=== PATIENT | female | born 1955 | race Caucasian/White ===

== ENCOUNTER 2016-08-15 17:01 | Emergency (ER) | payer BC, OTHER, SELFPAY ==
[2016-08-15] MEDS ORDERED: Sodium Chloride 0.9% 10 ML Syringe FLUSH PRN (17:11)
[2016-08-15 17:25] VITALS: BP 139/84
[2016-08-15 17:59] LABS: CHLORIDE,CL 101 mmol/L (98-107); SODIUM,NA 142 mmol/L (136-145)
--- NOTE | 2016-08-16 11:25 | ER ---
Date of Service: 08/15/2016 SUBJECTIVE: Ms. Preston presents to the emergency room with complaints of upper abdominal pain and back pain. She states that the discomfort started approximately 3 o'clock this afternoon. She states the discomfort was a sharp, shooting type of pain. She denies any changes to her bowel or bladder function and no nausea. No vomiting. No melena, hematochezia, or hematemesis. She states that the pain radiates into her lower back. She states that she was making cupcakes at the onset of the symptoms. She does have a history of a ruptured duodenal ulcer in the past, but states that the pain is dissimilar to that. She states that the discomfort is worse with movement and she thinks that possibly the discomfort actually is originating from her mid back region. She states she has not been experiencing any fever or chills. No nausea, vomiting, or diarrhea. PAST MEDICAL HISTORY: 1. Ruptured duodenal ulcer. 2. Vitamin D deficiency. 3. Dyslipidemia. MEDICATIONS: 1. Zocor 20 mg at bedtime. 2. Multivitamin once daily. 3. Vitamin D3 1000 units p.o. daily. 4. Calcium plus D 1 tablet p.o. b.i.d. 5. Aspirin 81 mg daily. ALLERGIES: Codeine and iodine. REVIEW OF SYSTEMS: General: No fever or chills. HEENT: No sore throat, rhinorrhea, or congestion. Respiratory: No shortness of breath. Cardiac: Denies any substernal chest pain. No jaw, arm, neck, or back pain. GASTROINTESTINAL: Complains again of upper abdominal and back pain. She states that the discomfort was fairly rapid in onset. She is not sure specifically which discomfort started first. NEUROLOGIC: No fainting, blackouts, or lightheadedness. PHYSICAL EXAMINATION: General: This is a 60-year-old female patient, in no acute distress. Vital Signs: Blood pressure is 139/84, pulse rate 64, temperature is 36.9, respiratory rate is 20, O2 saturations 96%. SKIN: Warm, pink, and dry. HEENT: Mouth, oral mucosa is moist. No erythema or exudate noted in the hypopharynx. Neck: Supple without masses. There is no lymphadenopathy. Lungs: Clear to auscultation. Heart: Regular rate and rhythm. Abdomen: Soft and nontender. There is no hepatosplenomegaly or masses noted. Unable to reproduce the discomfort on palpation of her upper abdomen. Back: She does have increased discomfort with flexion and extension of her mid back region. Extremities: Without edema. Neurologic: She is alert and oriented, answers all questions appropriately. Her speech is fluent. Her gait is within normal limits. LABORATORY DATA: WBCs 6.7, hemoglobin is 14.2, platelets are 228. Chemistry; sodium is 142, potassium is 3.6, chloride is 101, bicarb is 36, BUN is 16, creatinine is 1.0, creatinine clearance is 58, GFR is 57, glucose is 113, calcium is 9.3, corrected calcium is 9.14. Total bilirubin is 0.6, AST is 20, ALT is 22, alkaline phosphatase is 77. C-reactive protein is less than 0.2. Total protein is 7.7. Urinalysis; pH is 7.5, specific gravity is 1.020. Negative for glucose, ketones, occult blood, nitrites, bilirubin, leukocyte esterase. The patient's blood alcohol was negative. EMERGENCY ROOM COURSE: The patient's mid discomfort was resolving on arrival to the emergency room. As the patient set in the emergency room, the discomfort continued to improve and by the time she was discharged, the pain had almost completely resolved. She remained stable in my care in the emergency room. ASSESSMENT: Upper abdominal and mid back pain. PLAN: Discussed the findings with the patient. At this point, since this has been approximately 2 hours since the onset of the symptoms and her vital signs and then laboratory findings were all within normal limits, we could probably delay CT scan at this point. She does not have an elevated CRP and her white count is within normal limits. I did schedule her for a gallbladder ultrasound. She does live in [place] and will return if the discomfort redevelops. She will also return if she develops any fever, chills, sweats or other worrisome signs or symptoms. All questions were answered. MWK: 08/15/2016 19:38:28 MODL: 08/15/2016 20:06:06 /[id number]
== END 2016-08-15 18:48 | disposition home or self-care (01) ==
LOC: VM.ED 17:01
DX: R10.10 Upper abdominal pain, unspecified (principal); M54.9 Dorsalgia, unspecified; E78.5 Hyperlipidemia, unspecified; Z79.82 Long term (current) use of aspirin; Z88.5 Allergy status to narcotic agent; Z88.8 Allergy status to other drugs, medicaments and biological substances
CPT/HCPCS: 36415; 74022; 80053; 81001; 85025; 86140; 99284; G0480

== ENCOUNTER 2016-09-13 11:48 | Emergency (ER) | payer BC, SELFPAY ==
[2016-09-13] MEDS ORDERED: Sodium Chloride 0.9% 10 ML Syringe FLUSH PRN (11:56)
[2016-09-13] MEDS ORDERED: HYDROmorphone 1 MG/ML Syringe IVPUSH ONE ×2 (11:58→12:53)
[2016-09-13] MEDS ORDERED: Sodium Chloride 0.9% 1,000 ML IV ONE (11:58)
[2016-09-13] MEDS ORDERED: Ondansetron 4 MG/2 ML SDV IVPUSH ONE (11:58)
[2016-09-13 12:34] LABS: CHLORIDE,CL 103 mmol/L (98-107); SODIUM,NA 139 mmol/L (136-145)
[2016-09-13] MEDS ORDERED: Prochlorperazine 10 MG/2 ML SDV IV ONE (12:53)
[2016-09-13] MEDS ORDERED: diphenhydrAMINE 50 MG/ML SDV IVPUSH ONE (12:54)
[2016-09-13] MEDS ORDERED: Ertapenem 1 GM Vial IM ONE (13:38)
[2016-09-13 13:44] VITALS: BP 132/61
[2016-09-13] MEDS ORDERED: Ertapenem 1 GM Vial IV ONE (13:51)
--- NOTE | 2016-09-14 00:37 | ER ---
Date of Service: 09/13/2016 SUBJECTIVE: Sangeeta presents to the emergency room, complains of right lower quadrant abdominal pain. The patient states that she has been experiencing this discomfort since early this morning. She states that it did wake her from sleep. The patient states that she has not been experiencing any fever or chills. She does have a history of previous ruptured duodenal ulcer. PAST MEDICAL HISTORY: 1. Of dyslipidemia. 2. Ruptured duodenal ulcer. 3. Cervical cancer. 4. Hernia. MEDICATIONS: 1. Multivitamin. 2. Vitamin D3. 3. Calcium plus D. 4. Aspirin. 5. Zocor. ALLERGIES: Codeine and iodine. REVIEW OF SYSTEMS: General: No fever or chills. HEENT: No sore throat, rhinorrhea, congestion. Respiratory: No shortness of breath. Cardiac: Denies any substernal chest pain. GI: No nausea, vomiting, or diarrhea. GI complaints of right lower quadrant abdominal pain. No melena, hematochezia, or hematemesis. PHYSICAL EXAMINATION: General: This is a 60-year-old female patient in no acute distress. Vital Signs: Blood pressure is 153/79, pulse rate 75, temperature is 37.2, respiratory rate is 14, O2 saturations 96%. Skin: Warm, pink, and dry. HEENT. Head is normocephalic, atraumatic. Eyes, PERRLA. Extraocular movements are intact. Mouth, oral mucosa is moist. No erythema or exudate noted in hypopharynx. Neck: Supple. No masses. There is no lymphadenopathy. Lungs: Clear to auscultation. Heart: Regular rate and rhythm. Abdomen: Soft, tender in the right lower quadrant. There is no masses noted. There is no hepatosplenomegaly noted. Extremities: Without edema. LABORATORY DATA: WBC is 8.0, hemoglobin is 13.1, platelets are 201. Coags; PT is 10.4, INR is 0.9. Chemistry; sodium is 139, potassium is 3.8, chloride is 103, bicarb is 31, BUN is 14, creatinine is 0.8. GFR is greater than 60. Glucose is 107, lactic acid is 0.7, calcium is 9.1, corrected calcium is 9.02, total bilirubin is 0.6. AST is 17, ALT is 21, alkaline phosphatase is 74. C- reactive protein is less than 0.2, total protein is 7.3. Urinalysis reveals trace of occult blood. Negative for protein, glucose, and ketones. Negative for nitrites and bilirubin. CT scan of the patient's abdomen with oral contrast was obtained. 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 ASSESSMENT: Acute appendicitis. PLAN: The patient will be transferred to [facility] in [place]. The patient will be transported by [facility] ground ambulance. She was started on Invanz 1 g IV. I spoke with Dr. Ferris, the surgeon who accepted the patient in transfer. The patient was given IV Dilaudid for pain control. Please see nursing notes. All questions were answered. MWK: 09/13/2016 17:46:47 MODL: 09/14/2016 00:31:51 /[id number]
== END 2016-09-13 14:10 | disposition short-term general hospital (02) ==
LOC: VM.ED 11:48
DX: K35.80 Unspecified acute appendicitis (principal); E78.5 Hyperlipidemia, unspecified; Z79.82 Long term (current) use of aspirin; Z88.5 Allergy status to narcotic agent; Z88.8 Allergy status to other drugs, medicaments and biological substances
CPT/HCPCS: 36415; 74176; 80053; 81001; 83605; 85025; 85610; 86140; 96361; 96374; 96375; 96376; 99285; J0780; J1170; J1200; J1335; J2405; J7030

== ENCOUNTER 2019-03-01 19:15 | Emergency (ER) | payer OTHER ==
[2019-03-01] MEDS ORDERED: Albuterol/Ipratropium 3.0-0.5 MG/3 ML Neb Soln NEB ONE (19:39)
--- NOTE | 2019-03-01 19:55 | EDM.PDOC ---
ED HPI GENERAL MEDICAL PROBLEM - General Stated Complaint: RESPIRATORY Time Seen by Provider: 03/01/19 19:15 Source of Information: Reports: Patient, Family History Limitations: Reports: No Limitations - History of Present Illness INITIAL COMMENTS - FREE TEXT/NARRATIVE: PtIvonne presents to ER with complaints of continued cough and chest congestion. Pt. has a history of COPD and is a heavy smoker. She states that she is not on any medications for COPD and denies having the disease-apparently she has not been formally diagnosed. She states she was seen in the clinic last week with cough and chest congestion. She was started on a z argelia and prednisone 30mg once daily for 5 days. She states that she is almost done with these medications and is actually feeling worse. No chest x-ray has been performed. Denies any fever or chills. She states that her cough is productive of yellowish sputum. She is not using any inhaler. No substernal chest pain. No jaw, arm, neck or back pain. She has not been diaphoretic. Onset Date: 02/17/19 Worsens with: Reports: Rest Associated Symptoms: Reports: Cough, cough w sputum - Related Data Allergies Allergy/AdvReac Type Severity Reaction Status Date / Time codeine Allergy Rash Verified 03/01/19 19:49 iodine AdvReac Nausea and Verified 03/01/19 19:49 Vomiting Home Meds: Home Meds Calcium Carbonate/Vitamin D3 [Caltrate-600 with Vit D Tab] 1 each PO BID [History] Cholecalciferol (Vitamin D3) [Vitamin D3] 1,000 units PO DAILY 12/01/14 [History ] Multivitamin [Daily Vitamin] 1 each PO DAILY 12/01/14 [History] Simvastatin [Zocor] 20 mg PO BEDTIME 12/01/14 [History] Past Medical History Cardiovascular History: Reports: High Cholesterol - Past Surgical History GI Surgical History: Reports: Hernia Repair/Other, Other (See Below) ED ROS GENERAL - Review of Systems Review Of Systems: See Below Constitutional: Reports: No Symptoms HEENT: Reports: No Symptoms Respiratory: Reports: Wheezing, Cough, Sputum Cardiovascular: Reports: No Symptoms. Denies: Chest Pain, Edema, Lightheadedness, Orthopnea Endocrine: Reports: No Symptoms GI/Abdominal: Reports: No Symptoms : Reports: No Symptoms Musculoskeletal: Reports: No Symptoms Skin: Reports: No Symptoms Neurological: Reports: No Symptoms Psychiatric: Reports: No Symptoms Hematologic/Lymphatic: Reports: No Symptoms Immunologic: Reports: No Symptoms ED EXAM, GENERAL - Physical Exam Exam: See Below Exam Limited By: No Limitations General Appearance: Alert, WD/WN, No Apparent Distress Nose: Normal Inspection, Normal Mucosa, No Blood Throat/Mouth: Normal Inspection, Normal Lips, Normal Teeth, Normal Gums, Normal Oropharynx, Normal Voice, No Airway Compromise Head: Atraumatic, Normocephalic Neck: Normal Inspection, Supple, Non-Tender, Full Range of Motion Respiratory/Chest: No Accessory Muscle Use, Chest Non-Tender, Decreased Breath Sounds, Rhonchi, Wheezing Cardiovascular: Normal Peripheral Pulses, Regular Rate, Rhythm, No Edema, No Gallop, No JVD, No Murmur, No Rub GI/Abdominal: Normal Bowel Sounds, Soft, Non-Tender, No Organomegaly, No Distention, No Abnormal Bruit, No Mass, Pelvis Stable (Female) Exam: Deferred Back Exam: Normal Inspection, Full Range of Motion Extremities: Normal Inspection, Normal Range of Motion, Non-Tender, No Pedal Edema, Normal Capillary Refill Neurological: Alert, Oriented, CN II-XII Intact, Normal Cognition, No Motor/ Sensory Deficits Skin Exam: Warm, Dry, Intact, Normal Color, No Rash Course - Vital Signs Last Recorded V/S: Last Vital Signs Temp 36.9 C 03/01/19 19:15 Pulse 78 03/01/19 20:05 Resp 18 03/01/19 20:05 BP 126/66 03/01/19 19:15 Pulse Ox 94 L 03/01/19 20:05 - Orders/Labs/Meds Orders: Active Orders 24 hr Category Date Time Status RT Aerosol Therapy [RC] ASDIRECTED Care 03/01/19 19:39 Active Chest 2V [CR] Stat Exams 03/01/19 19:39 Taken Peripheral IV Insertion Adult [OM.PC] Routine Oth 03/01/19 20:32 Ordered Meds: Medications Discontinued Medications Generic Name Dose Route Start Last Admin Trade Name Freq PRN Reason Stop Dose Admin Albuterol 1 packet 03/01/19 20:35 03/01/19 21:12 Take Home: Albuterol 6.7 Gm, 1 Inh Pack INH 03/01/19 20:36 1 packet ONETIME ONE Administration Albuterol/Ipratropium 3 ml 03/01/19 19:39 03/01/19 19:52 Duoneb 3.0-0.5 Mg/3 Ml NEB 03/01/19 19:40 3 ml ONETIME ONE Administration Ceftriaxone Sodium 2 gm 03/01/19 20:32 03/01/19 20:50 Rocephin IVPUSH 03/01/19 20:33 2 gm STAT ONE Administration Methylprednisolone Sodium Succinate 125 mg 03/01/19 20:32 03/01/19 20:47 Solu-Medrol IV 03/01/19 20:33 125 mg ONETIME ONE Administration Sodium Chloride 10 ml 03/01/19 20:31 Saline Flush FLUSH ASDIRECTED PRN Keep Vein Open Departure - Departure Time of Disposition: 21:19 Disposition: Home, Self-Care 01 Clinical Impression: COPD exacerbation - Discharge Information Instructions: Chronic Obstructive Pulmonary Disease Exacerbation, Acute Bronchitis, Adult Referrals: Nina Evans PA-C [Primary Care Provider] - Forms: ED Department Discharge Additional Instructions: Home to rest. Prednisone 60mg once daily for 6 days. Doxycycline 100mg twice daily for 10 days Albuterol inhaler 2 puffs every 4-6 hours as needed for cough - My Orders Last 24 Hours: My Active Orders 03/01/19 19:39 RT Aerosol Therapy [RC] ASDIRECTED Chest 2V [CR] Stat 03/01/19 20:32 Peripheral IV Insertion Adult [OM.PC] Routine - Assessment/Plan Last 24 Hours: My Active Orders 03/01/19 19:39 RT Aerosol Therapy [RC] ASDIRECTED Chest 2V [CR] Stat 03/01/19 20:32 Peripheral IV Insertion Adult [OM.PC] Routine Plan: Home to rest. Prednisone 60mg once daily for 6 days. Doxycycline 100mg twice daily for 10 days Albuterol inhaler 2 puffs every 4-6 hours as needed for cough
[2019-03-01 20:04] VITALS: BP 126/66
[2019-03-01 20:27] VITALS: PULSE 78
[2019-03-01] MEDS ORDERED: Sodium Chloride 0.9% 10 ML Syringe FLUSH PRN (20:31)
[2019-03-01] MEDS ORDERED: methylPREDNISolone Sodium Succinate 125 MG/2 ML SDV IV ONE (20:32)
[2019-03-01] MEDS ORDERED: cefTRIAXone 2 GM Vial IVPUSH ONE (20:32)
[2019-03-01] MEDS ORDERED: Take Home: Albuterol 6.7 GM Inhaler, 1 Inhaler Pack INH ONE (20:35)
--- NOTE | 2019-03-02 07:53 | CR ---
[id number] RAD/RAD Chest PA And Lateral EXAM: RAD Chest PA And Lateral CLINICAL DATA: CONGESTION COUGH COMPARISON: NO PREVIOUS SIMILAR EXAM IS AVAILABLE. FINDINGS: The lungs are clear but hyperaerated. The cardiomediastinal contour is normal. The regional bones and soft tissues are unremarkable. IMPRESSION: AIRWAY DISEASE Tristin Ragsdale MD 03/02/19 0752 Thank you for allowing us to participate in the care of your patient.
== END 2019-03-01 21:19 | disposition home or self-care (01) ==
LOC: VM.ED 19:15
DX: J44.1 Chronic obstructive pulmonary disease with (acute) exacerbation (principal); E78.00 Pure hypercholesterolemia, unspecified; F17.200 Nicotine dependence, unspecified, uncomplicated; Z88.8 Allergy status to other drugs, medicaments and biological substances; Z88.5 Allergy status to narcotic agent
CPT/HCPCS: 71046; 94640; 96374; 96375; 99285-25; A9270-GY; J0696; J2930; J7620-GY

== ENCOUNTER 2020-07-08 06:54 | Day surgery (SDC) | payer OTHER ==
[2020-07-08] MEDS ORDERED: Lactated Ringers 1,000 ML IV SCH (07:00)
[2020-07-08] MEDS ORDERED: Propofol 200 MG/20 ML SDV ONE (08:07)
[2020-07-08] MEDS ORDERED: fentaNYL 100 MCG/2 ML SDV ONE (08:07)
[2020-07-08 09:20] VITALS: BP 120/55; PULSE 59
--- NOTE | 2020-07-08 13:49 | OR ---
PREOPERATIVE DIAGNOSES: 1. History of colon polyps. 2. Family history of colon cancer in sister at age 57. POSTOPERATIVE DIAGNOSES: 1. History of colon polyps. 2. Family history of colon cancer in sister at age 57. 3. Colon polyps. PROCEDURE PERFORMED: Total flexible colonoscopy. ANESTHESIA: MAC anesthesia. COMPLICATIONS: None apparent. BLOOD LOSS: Minimal. FINDINGS: 1. Sigmoid colon polyps x4, 2 mm to 3 mm, cold forceps. 2. Internal hemorrhoids. INDICATION FOR PROCEDURE: Sangeeta Preston is a 64-year-old female who is here for a screening colonoscopy. Her last scope was 6 years ago. She tells me she has had polyps in the past but is not sure if at the most recent scope, she had polyps. She denies bloody or dark black stools. She does have a family history of colorectal cancer in her sister who at age 57. START TIME: 0812. CECUM TIME: 08. STOP TIME: 832. BOWEL PREP: [place] class 3. DETAILS OF PROCEDURE: Informed consent was obtained. The patient was brought to the procedure room, placed in left lateral decubitus position. MAC anesthesia was used by Anesthesia colleagues. The colonoscope was introduced into the rectum and advanced all the way to the cecum. She did have a fairly redundant sigmoid colon and so, a bit of abdominal pressure was used to allow us to advance all the way to the cecum. The appendiceal orifice was photographed. The terminal ileum was intubated and photographed to confirm that we reached the cecum. The colonoscope was then slowly withdrawn and no pathology was identified except for as mentioned in the above findings section. A retroflexed view was obtained. The colonoscope was then withdrawn. The patient was awoken from MAC anesthesia by the Anesthesia colleagues without incident. PATHOLOGY: Colon, sigmoid polyps Hyperplastic polyps (4). Recommend repeat screening colonoscopy in 5 years. RKM: 07/08/2020 08:38:09 MODL: 07/08/2020 12:01:45 /[id number] JUNIOR
--- NOTE | 2020-07-13 08:31 | LETTER ---
07/12/2020 RE: ANASTACIA MARTIN MOHAN : 1955 [address] [place] [address] Dear Ms. Preston: I am writing to inform you of the pathology results of your recent colonoscopy. You had 4 polyps that were removed. These were all hyperplastic polyps. A hyperplastic polyp does not contain cancer and it is not considered precancerous. Due to your family history of colon cancer, you will need a repeat screening colonoscopy in 5 years. Warmest regards,
== END 2020-07-08 09:55 | disposition home or self-care (01) ==
LOC: VM.SDS 06:54
PROVIDERS: ATTEND Student in an Organized Health Care Education/Training Program
DX: Z12.11 Encounter for screening for malignant neoplasm of colon (principal); K64.8 Other hemorrhoids; E78.00 Pure hypercholesterolemia, unspecified; G89.29 Other chronic pain; M85.80 Other specified disorders of bone density and structure, unspecified site; F17.210 Nicotine dependence, cigarettes, uncomplicated; Z80.0 Family history of malignant neoplasm of digestive organs; Z86.010 Personal history of colon polyps; Z98.890 Other specified postprocedural states; Z88.5 Allergy status to narcotic agent; Z79.899 Other long term (current) drug therapy; Z88.8 Allergy status to other drugs, medicaments and biological substances
CPT/HCPCS: 00812; J2704; J3010; J7120

== ENCOUNTER 2021-05-29 14:34 | Emergency (ER) | payer MEDICARE, OTHER ==
[2021-05-29] MEDS ORDERED: Albuterol/Ipratropium 3.0-0.5 MG/3 ML Neb Soln NEB ONE (14:40)
[2021-05-29 14:46] VITALS: BP 165/78; PULSE 84
[2021-05-29 15:14] LABS: CHLORIDE,CL 102 mmol/L (98-107); SODIUM,NA 140 mmol/L (136-145)
--- NOTE | 2021-05-29 15:24 | EDM.PDOC ---
ED HPI GENERAL MEDICAL PROBLEM - General Chief Complaint: Respiratory Problem Stated Complaint: COUGH, SINUS ISSUES Time Seen by Provider: 05/29/21 14:35 Source of Information: Reports: Patient - History of Present Illness INITIAL COMMENTS - FREE TEXT/NARRATIVE: Coughing since Saturday, states green sputum. Some SOB. Denies any other symptoms. Onset Date: 05/26/21 Duration: Getting Worse Associated Symptoms: Reports: Cough, cough w sputum, Shortness of Breath - Related Data Allergies Allergy/AdvReac Type Severity Reaction Status Date / Time cephalexin Allergy Itching Verified 05/29/21 14:43 codeine Allergy Rash Verified 05/29/21 14:43 iodine AdvReac Nausea and Verified 05/29/21 14:43 Vomiting Home Meds: Home Meds Calcium Carbonate/Vitamin D3 [Caltrate-600 with Vit D Tab] 1 each PO BIDMEALS 12/01/14 [History] Simvastatin [Zocor] 20 mg PO BEDTIME 12/01/14 [History] Docusate Sodium/Sennosides [Senokot-S] 1 tab PO BID PRN 06/13/20 [History] Naproxen 500 mg PO BID 05/29/21 [History] tiZANidine [Zanaflex] 4 mg PO TID PRN 05/29/21 [History] Past Medical History HEENT History: Reports: Other (See Below) Other HEENT History: preglaucoma Cardiovascular History: Reports: High Cholesterol Respiratory History: Reports: COPD Gastrointestinal History: Reports: Other (See Below) Other Gastrointestinal History: perforated bowel Musculoskeletal History: Reports: Back Pain, Chronic, Other (See Below) Other Musculoskeletal History: senile osteopenia, plantar fascitis Psychiatric History: Reports: Other (See Below) Other Psychiatric History: tobacco use disorder Oncologic (Cancer) History: Reports: Cervix - Past Surgical History Cardiovascular Surgical History: Reports: Other (See Below) Other Cardiovascular Surgeries/Procedures: fem-pop bypass graft GI Surgical History: Reports: Appendectomy, Hernia Repair/Other, Other (See Below) Other GI Surgeries/Procedures: polyp small intestine, laparotomy and repair of duodenal ulcer, colectomy Female Surgical History: Reports: Hysterectomy Other Female Surgeries/Procedures: malignant neoplasm of cervix uteri Social & Family History - Tobacco Use Tobacco Use Status *Q: Current Every Day Tobacco User Years of Tobacco use: 40 Packs/Tins Daily: 0.3 - Recreational Drug Use Recreational Drug Use: No ED ROS GENERAL - Review of Systems Review Of Systems: Comprehensive ROS is negative, except as noted in HPI. ED EXAM, GENERAL - Physical Exam Exam: See Below Exam Limited By: No Limitations General Appearance: Alert, No Apparent Distress Eye Exam: Bilateral Eye: EOMI Ears: Normal External Exam Nose: Normal Inspection, No Blood Throat/Mouth: Normal Inspection, Normal Oropharynx, Normal Voice, No Airway Compromise Head: Atraumatic, Normocephalic Neck: Normal Inspection, Supple, Non-Tender, Full Range of Motion Respiratory/Chest: Decreased Breath Sounds Cardiovascular: Normal Peripheral Pulses, Regular Rate, Rhythm, No Edema GI/Abdominal: Soft, Non-Tender, No Distention Back Exam: Normal Inspection, Full Range of Motion Extremities: Normal Inspection, Normal Range of Motion, Non-Tender, Normal Capillary Refill Neurological: Alert, Oriented, Normal Cognition, Normal Gait, No Motor/Sensory Deficits Psychiatric: Normal Affect, Normal Mood Skin Exam: Warm, Dry, Intact, Normal Color, No Rash Lymphatic: No Adenopathy Course - Vital Signs Last Recorded V/S: Last Vital Signs Temp 97.1 F 05/29/21 14:36 Pulse 84 05/29/21 14:36 Resp 18 05/29/21 14:36 BP 165/78 H 05/29/21 14:36 Pulse Ox 92 L 05/29/21 14:36 - Orders/Labs/Meds Orders: Active Orders 24 hr Category Date Time Status RT Aerosol Therapy [RC] ASDIRECTED Care 05/29/21 14:41 Active Albuterol [Take Home: Albuterol 18 GM, 1 INH Pack] Med 05/29/21 16:09 Ordered 1 packet INH Q4H PRN Medication Orders Albuterol (Take Home: Albuterol 18 Gm Inhaler, 1 Inhaler Pack) 1 packet INH Q4H PRN PRN Reason: Shortness of Breath Last Admin: 05/29/21 16:15 Dose: 1 inhaler Documented by: Labs: Laboratory Tests 05/29/21 05/29/21 05/29/21 Range/Units 14:50 14:50 15:21 WBC 3.7 L (4.0-10.0) x10^3/uL RBC 4.34 (4.00-5.50) x10^6/uL Hgb 13.1 (12.0-16.0) g/dL Hct 39.5 (33.0-47.0) % MCV 91.0 (78.0-93.0) fL MCH 30.2 (26.0-32.0) pg MCHC 33.2 (32.0-36.0) g/dL RDW Coeff of Latasha 12.6 (10.0-15.0) % Plt Count 181 (130-400) x10^3/uL Immature Gran % (Auto) 0.00 (0.00-0.43) % Neut % (Auto) 51.8 (50.0-80.0) % Lymph % (Auto) 34.8 (25.0-50.0) % [place] % (Auto) 12.4 H (2.0-11.0) % Eos % (Auto) 0.5 (0.0-4.0) % Baso % (Auto) 0.5 (0.2-1.2) % Neut # (Auto) 1.9 (1.8-7.7) x10^3/uL Lymph # (Auto) 1.3 (1.0-4.8) x10^3/uL [place] # (Auto) 0.5 (0.0-0.8) x10^3/uL Eos # (Auto) 0.0 (0.0-0.5) x10^3/uL Baso # (Auto) 0.0 (0.0-0.2) x10^3/uL Immature Gran # (Auto) 0.00 (0.00-0.07) x10^3/uL Sodium 140 (136-145) mmol/L Potassium 4.0 (3.5-5.1) mmol/L Chloride 102 (98-107) mmol/L Carbon Dioxide 33 H (21-32) mmol/L Anion Gap 9.0 (5-15) mmol/L BUN 15 (7-18) mg/dL Creatinine 0.8 (0.55-1.02) mg/dL Est Cr Clr Drug Dosing TNP Estimated GFR (MDRD) > 60 Glucose 104 H (70-99) mg/dL Calcium 9.2 (8.5-10.1) mg/dL Corrected Calcium 9.4 (8.5-10.1) mg/dL Total Bilirubin 0.2 (0.2-1.0) mg/dL AST 17 (15-37) U/L ALT 18 (14-59) U/L Alkaline Phosphatase 77 (46-116) U/L Total Protein 6.9 (6.4-8.2) g/dL Albumin 3.7 (3.4-5.0) g/dL Globulin 3.2 Albumin/Globulin Ratio 1.16 Influenza Type A RNA Negative (NEGATIVE) RSV RNA (INAAT) Negative (NEGATIVE) Influenza Type B RNA Negative (NEGATIVE) SARS-CoV-2 RNA (DIMAS) Negative (NEGATIVE) Meds: Medications Generic Name Dose Route Start Last Admin Trade Name Freq PRN Reason Stop Dose Admin Albuterol 1 packet 05/29/21 16:09 05/29/21 16:15 Take Home: Albuterol 18 Gm Inhaler, 1 Inhaler Pack INH 1 inhaler Q4H PRN Administration Shortness of Breath Discontinued Medications Generic Name Dose Route Start Last Admin Trade Name Freq PRN Reason Stop Dose Admin Albuterol/Ipratropium 3 ml 05/29/21 14:40 05/29/21 14:57 Albuterol/Ipratropium 3.0-0.5 Mg/3 Ml Neb Soln NEB 05/29/21 14:41 3 ml ONETIME ONE Administration Amoxicillin 1 packet 05/29/21 16:07 05/29/21 16:15 Take Home: Amoxicillin 875 Mg Tab, 2 Tab Pack PO 05/29/21 16:08 1 packet ONETIME ONE Administration - Re-Assessments/Exams Free Text/Narrative Re-Assessment/Exam: 05/29/21 16:14 Pt states feeling much better. CXR and labs reviewed. Pt states she has taken Amoxi and Augmentin in past with no problems. Rx given for Augmentin 875 total duration is 7 days. Take home pack of Augmentin and albuterol INH given. Departure - Departure Time of Disposition: 16:15 Disposition: Home, Self-Care 01 Condition: Good Clinical Impression: COPD exacerbation - Discharge Information Instructions: Chronic Obstructive Pulmonary Disease Exacerbation, [id number], Metered Dose Inhaler (No Spacer Used) Referrals: Nina Evans PA-C [Primary Care Provider] - Forms: ED Department Discharge Additional Instructions: Medications as ordered. Get prescription filled for remaining medications. Follow up with your Primary Care Provider if symptoms worsen or do not resolve. Sepsis Event Note (ED) - Focused Exam Vital Signs: Vital Signs Temp Pulse Resp BP Pulse Ox 05/29/21 14:36 97.1 F 84 18 165/78 H 92 L - Problem List & Annotations (1) COPD exacerbation SNOMED Code(s): 340599273 Code(s): J44.1 - CHRONIC OBSTRUCTIVE PULMONARY DISEASE W (ACUTE) EXACERBATION Status: Acute Current Visit: Yes - Problem List Review Problem List Initiated/Reviewed/Updated: Yes - My Orders Last 24 Hours: My Active Orders 05/29/21 14:41 RT Aerosol Therapy [RC] ASDIRECTED 05/29/21 16:09 Albuterol [Take Home: Albuterol 18 GM, 1 INH Pack] 1 packet INH Q4H PRN - Assessment/Plan Last 24 Hours: My Active Orders 05/29/21 14:41 RT Aerosol Therapy [RC] ASDIRECTED 05/29/21 16:09 Albuterol [Take Home: Albuterol 18 GM, 1 INH Pack] 1 packet INH Q4H PRN
--- NOTE | 2021-05-29 15:55 | CR ---
[id number] RAD/RAD Chest PA And Lateral EXAM: RAD Chest PA And Lateral INDICATION: COUGH, GREEN SPUTUM. COMPARISON: 2019. DISCUSSION/IMPRESSION: Cardiomediastinal silhouette is normal in size and contour. Bilateral symmetric lung hyperinflation suggests underlying parenchymal emphysema. Correlate for clinical signs of COPD. No evidence of pneumonia. No pleural effusion or pneumothorax. Nima Bruce MD 05/29/21 0408 Thank you for allowing us to participate in the care of your patient.
[2021-05-29 16:03] LABS: CORONAVIRUS COVID-19 NAA NEGATIVE (NEGATIVE); RESPIRATORY SYNCYTIAL VIR NAA NEGATIVE (NEGATIVE)
[2021-05-29] MEDS ORDERED: Take Home: Amoxicillin 875 MG Tab, 2 Tab Pack PO ONE (16:07)
[2021-05-29] MEDS ORDERED: Take Home: Albuterol 18 GM Inhaler, 1 Inhaler Pack INH PRN (16:09)
== END 2021-05-29 16:26 | disposition home or self-care (01) ==
LOC: VM.ED 14:34
DX: J44.1 Chronic obstructive pulmonary disease with (acute) exacerbation (principal); E78.00 Pure hypercholesterolemia, unspecified; Z72.0 Tobacco use; Z88.1 Allergy status to other antibiotic agents; Z88.5 Allergy status to narcotic agent; Z88.8 Allergy status to other drugs, medicaments and biological substances; Z79.899 Other long term (current) drug therapy; Z20.822 Contact with and (suspected) exposure to COVID-19
CPT/HCPCS: 0241U; 36415; 71046; 80053; 85025; 94640; 99285; A9270; J7620-GY